=== PATIENT | male | born 1955 ===

== ENCOUNTER 2018-06-03 09:35 | Emergency (ER) | payer MEDICAID ==
[2018-06-03 09:50] VITALS: BP 158/91; PULSE 71; RESP 18; TEMP 98.2; O2SAT 99
--- NOTE | 2018-06-03 09:58 | C.PDOC ---
History Of Present Illness 63 year old male patient presents to the ER with occasional left leg pain that starts from the left gluteal area to the left lateral leg. Patient states that he has had this pain for a few years already. His last evaluation was on April [address] where he had a CT scan of his LS spine showing spinal stenosis on L4 and L5. Patient reports he has lost weight since then and occasionally has exacerbation over 5 days. Currently, patient is not in distress. 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 Patient denies fever, chills, and weakness. Time Seen by Provider: 06/03/18 09:50 Chief Complaint (Nursing): Lower Extremity Problem/Injury History Per: Patient History/Exam Limitations: no limitations Past Medical History Reviewed: Historical Data, Nursing Documentation, Vital Signs Vital Signs: Last Vital Signs Temp 98.2 F 06/03/18 09:40 Pulse 71 06/03/18 09:40 Resp 18 06/03/18 09:40 BP 158/91 H 06/03/18 09:40 Pulse Ox 99 06/03/18 09:58 - [facility] Procedures OTHER SKIN & SUBQ I D (02/22/14) Family History: States: Unknown Family Hx - Social History Hx Tobacco Use: No Hx Alcohol Use: No Hx Substance Use: No - Immunization History Hx Tetanus Toxoid Vaccination: No Hx Influenza Vaccination: No Hx Pneumococcal Vaccination: No Review Of Systems Except As Marked, All Systems Reviewed And Found Negative. Constitutional: Negative for: Fever, Chills, Weakness Musculoskeletal: Positive for: Leg Pain (left leg pain; starts from left gluteal area to left lateral leg) Physical Exam - Physical Exam Appears: Well, Non-toxic, No Acute Distress Skin: Normal Color, Warm, Dry Head: Atraumatic, Normacephalic Eye(s): bilateral: Normal Inspection Back: No CVA Tenderness Extremity: Tenderness (mild tenderness to sacroiliac area) Neurological/Psych: Oriented x3, Normal Speech, Normal Motor, Normal Sensation, Normal Reflexes Gait: Steady ED Course And Treatment O2 Sat by Pulse Oximetry: 99 (RA) Pulse Ox Interpretation: Normal Medical Decision Making Medical Decision Making: known L5/S1 and L4/5 spinal stenosis, but pt today with L pyriformis tender and classic L lateral sciatica. no neuro symptoms ice and nsaids and weight loss reinforced. Disposition Doctor Will See Patient In The: Office Counseled Patient/Family Regarding: Studies Performed, Diagnosis - Disposition Referrals: [facility] [Outside] [facility] [Outside] Disposition: HOME/ ROUTINE Disposition Time: 09:58 Condition: GOOD Additional Instructions: bolsa de hielo 1/2 hora por hora, nada caliente, encima del area gluteal doloroso Sigue ibuprofeno 400-600 mg cada 6 horas bryce necessario. Sigue en la [facility] (gratis) bryce necessario Instructions: Sciatica, Radiculopathy Forms: Fatsoma (Yoruba) Print Language: MONTSERRATIAN - Clinical Impression Clinical Impression: Pyriformis syndrome - Scribe Statement The provider has reviewed the documentation as recorded by the Scribe Del Cid Do Provider Attestation: All medical record entries made by the Scribe were at my direction and personally dictated by me. I have reviewed the chart and agree that the record accurately reflects my personal performance of the history, physical exam, medical decision making, and the department course for this patient. I have also personally directed, reviewed, and agree with the discharge instructions and disposition.
== END 2018-06-03 10:26 | disposition home or self-care (01) ==
LOC: C.ER 09:35
DX: G57.00 Lesion of sciatic nerve, unspecified lower limb (principal)

== ENCOUNTER 2018-06-04 12:50 | Emergency (ER) | payer MEDICAID ==
[2018-06-04 13:20] VITALS: TEMP 97.8
--- NOTE | 2018-06-04 13:39 | C.PDOC ---
History Of Present Illness 63 year old male with PMHx of sciatica presents to the ED complaining of left back pain radiating down left buttock and left leg for one week. He complains he is unable to sleep due to pain. Patient denies any incontinence, tingling, numbness, or weakness. Time Seen by Provider: 06/04/18 13:27 Chief Complaint (Nursing): Back Pain History Per: Patient History/Exam Limitations: no limitations Onset/Duration Of Symptoms: Days Current Symptoms Are (Timing): Still Present Quality Of Discomfort: "Pain" Severity: Moderate Previous Symptoms: Back Pain Associated Symptoms: None Past Medical History Reviewed: Historical Data, Nursing Documentation, Vital Signs Vital Signs: Last Vital Signs Temp 97.8 F 06/04/18 13:17 Pulse 84 06/04/18 13:17 Resp 16 06/04/18 13:17 BP 153/95 H 06/04/18 13:17 Pulse Ox 97 06/04/18 13:55 - Medical History Other PMH: Sciatica Surgical History: No Surg Hx - [facility] Procedures OTHER SKIN & SUBQ I D (02/22/14) Family History: States: No Known Family Hx - Social History Hx Tobacco Use: No Hx Alcohol Use: No Hx Substance Use: No - Immunization History Hx Tetanus Toxoid Vaccination: No Hx Influenza Vaccination: No Hx Pneumococcal Vaccination: No Review Of Systems Neurological: Negative for: Weakness, Numbness Physical Exam - Physical Exam Appears: Non-toxic, No Acute Distress Skin: Warm, Dry Head: Atraumatic Eye(s): bilateral: Normal Inspection Nose: Normal Oral Mucosa: Moist Neck: Normal ROM, Supple Chest: Symmetrical Back: No CVA Tenderness, Other (Paralumbar tenderness, left greater than right ) Extremity: Normal ROM Extremity: Bilateral: Atraumatic, Normal Color And Temperature, Normal ROM Neurological/Psych: Oriented x3, Normal Speech Gait: Steady ED Course And Treatment O2 Sat by Pulse Oximetry: 97 (RA) Pulse Ox Interpretation: Normal Medical Decision Making Medical Decision Making: Impression: Sciatica Orders: - Valium 5mg PO - Toradol 30mg IM Patient was seen in the ED yesterday for similar presentation and was told to take Ibuprofen for pain. Patient reported he did not receive a prescription for Ibuprofen. Patient told Ibuprofen can be obtained over the counter. On reassessment, patient reports feeling better. Patient instructed to follow up with PMD and return to ED if symptoms worsen or persist. Disposition Counseled Patient/Family Regarding: Diagnosis, Need For Followup, Rx Given - Disposition Referrals: Paola Anand MD [Medical Doctor] - Disposition: HOME/ ROUTINE Disposition Time: 13:38 Condition: STABLE Additional Instructions: You can apply heat to area Take Tylenol 500mg for any pain Take Ibuprofen as needed for pain every 6-8 hours, with food to not upset stomach Take Flexeril every 8 hours as needed for muscular pain and spasm, caution may cause drowsiness Puedes aplicar calor al katelin [place] Tylenol 500 mg para cualquier dolor [place] ibuprofeno segn sea necesario para el dolor cada 6-8 horas, con alimentos para no disgustar el estmago [place] Flexeril cada 8 horas segn sea necesario para el dolor muscular y el espasmo, la precaucin puede causar somnolencia [place] gabepentina por cualquier sensacin de hormigueo Dread un seguimiento con madera mdico primario o clnica en 2-5 kyle para fanny evaluacin adicional. Regrese al departamento de emergencia en cualquier momento si los sntomas persisten o empeoran. Prescriptions: Cyclobenzaprine [Cyclobenzaprine HCl] 10 mg PO TID #30 tab Gabapentin 300 mg PO DAILY #30 capsule Ibuprofen [Motrin] 600 mg PO Q8 #30 tab Instructions: Sciatica (DC) Print Language: TAMAZIGHT - POA Present On Arrival: None - Clinical Impression Clinical Impression: Sciatica, Low back pain - PA / SOCIETY REPORTER / Resident Statement MD/DO has reviewed & agrees with the documentation as recorded. - Scribe Statement The provider has reviewed the documentation as recorded by the Elizabeth Lemons All medical record entries made by the Amitaibjemima were at my direction and personally dictated by me. I have reviewed the chart and agree that the record accurately reflects my personal performance of the history, physical exam, medical decision making, and the department course for this patient. I have also personally directed, reviewed, and agree with the discharge instructions and disposition.
[2018-06-04 14:03] VITALS: BP 149/90; PULSE 81; RESP 18
[2018-06-04 15:03] VITALS: O2SAT 97
== END 2018-06-04 14:03 | disposition home or self-care (01) ==
LOC: C.ER 12:50
DX: M54.42 Lumbago with sciatica, left side (principal)
CPT/HCPCS: 96372; 99283; J1885